=== PATIENT | female | born 1935 | race Caucasian/White ===

== ENCOUNTER 2016-09-13 14:13 | Emergency (ER) | payer SELFPAY ==
[~2016-09-13] VITALS: Ht 142.2 cm; Wt 59.0 kg
[2016-09-13 14:58] VITALS: BP 156/72
[2016-09-13] MEDS ORDERED: ALBUTEROL 0.083% 2.5 MG/3 ML NEBU INH ONE ×2 (15:00→15:55)
[2016-09-13] MEDS ORDERED: ALBUTEROL SULFATE/IPRATROPIU 3 ML SOL IH ONE ×2 (15:00→15:55)
[2016-09-13] MEDS ORDERED: predniSONE 20 MG TAB PO ONE (15:00)
--- NOTE | 2016-09-13 15:00 | NUR ---
Note undone in EDM - 09/13/16 at 1624 by [email or web address] 81/F BIB DAUGHTER C/O COUGH, SOB X 1 DAY. PT DENIES N/V/D; SKIN IS PINK/WARM/DRY; AAOX4 WITH EVEN AND STEADY GAIT; LUNGS WHEEZING BL; HR EVEN AND REGULAR; PT STATES HAS HEADACHE , SOB, & COUGH AT THIS TIME; PATIENT STATES PAIN OF 10/10 AT THIS TIME; PATIENT POSITIONED FOR COMFORT; HOB ELEVATED; BEDRAILS UP X2; BED DOWN. ER MADE AWARE OF PT STATUS.
--- NOTE | 2016-09-13 15:00 | NUR ---
81/F BIB DAUGHTER C/O COUGH, SOB X 1 DAY. PT DENIES N/V/D; SKIN IS PINK/WARM/DRY; AAOX4 WITH EVEN AND STEADY GAIT; LUNGS WHEEZING BL; HR EVEN AND REGULAR; PT STATES HAS CHEST PAIN WHEN PT COUGHS ; SOB, & COUGH AT THIS TIME; PATIENT STATES PAIN OF 10/10 AT THIS TIME; PATIENT POSITIONED FOR COMFORT; HOB ELEVATED; BEDRAILS UP X2; BED DOWN. ER MD MADE AWARE OF PT STATUS.
--- NOTE | 2016-09-13 15:05 | NUR ---
XRAY AT BEDSIDE.
--- NOTE | 2016-09-13 15:05 | NUR ---
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
--- NOTE | 2016-09-13 15:05 | NUR ---
RT AT BEDSIDE.
--- NOTE | 2016-09-13 15:18 | NUR ---
PT C/O HAS HEADACHE 12/30. DR VILLEGAS NOTIFIED. WILL CONTINUE TO MONITOR.
--- NOTE | 2016-09-13 16:01 | NUR ---
FOLLOW UP [facility]N THERAPY ORDERED AND GIVEN TOLERATED WELL WITHOUT INCIDENT BREATH SOUDNS INSP/EXP RHONCHI BILATERAL WITH GOOD CHEST RISE ENCOURAGED DEEP BREATH AND COUGH DURING HHN THERAPY STRONG MOIST NPC PATIENT SWALLOWING SECRETIONS ON SUPPLEMENTAL OXYGEN AT 2 LPM VIA NC JOHN/DAUGHTER REAMINS AT BEDSIDE
--- NOTE | 2016-09-13 16:10 | NUR ---
RT AT BEDSIDE.
[2016-09-13 16:40] VITALS: BP 137/70
--- NOTE | 2016-09-13 16:40 | NUR ---
Patient discharged with BP 137/70; NO C/O N/V OR HEADACHE NOTED; MD VILLEGAS NOTIFIED. Written and verbal after care instructions given and explained. Patient alert, oriented and verbalized understanding of instructions. Ambulatory with steady gait. All questions addressed prior to discharge. ID band removed. Patient advised to follow up with PMD. Rx of ALBUTEROL, MOTRIN & PREDNISONE given. Patient educated on indication of medication including possible reaction and side effects. Opportunity to ask questions provided and answered.
== END 2016-09-13 16:40 | disposition home or self-care (01) ==
LOC: MED 14:22
DX: J45.901 Unspecified asthma with (acute) exacerbation (principal); I10 Essential (primary) hypertension
CPT/HCPCS: 71010; 94640; 99284; J7512; J7613; J7620; Q0092